=== PATIENT | male | born 1970 | race Caucasian/White ===

== ENCOUNTER 2024-11-02 14:51 | Outpatient (CLI) | payer OTHER | END 2024-11-02 14:52 | disposition home or self-care (01) | LOC: BICCT 14:51 | PROVIDERS: ATTEND Student in an Organized Health Care Education/Training Program | DX: M19.011 Primary osteoarthritis, right shoulder (principal); M75.121 Complete rotator cuff tear or rupture of right shoulder, not specified as traumatic; M62.511 Muscle wasting and atrophy, not elsewhere classified, right shoulder; M25.811 Other specified joint disorders, right shoulder; R93.7 Abnormal findings on diagnostic imaging of other parts of musculoskeletal system; M21.821 Other specified acquired deformities of right upper arm ==

== ENCOUNTER 2025-06-19 03:03 | Emergency (ER) | payer OTHER ==
[2025-06-19] MEDS ORDERED: PROPOFOL 20 ML ONE (03:28)
[2025-06-19] MEDS ORDERED: Acetaminophen 500 MG TAB ONE (04:01)
== END 2025-06-19 05:00 ==
LOC: EEVIPCON 03:03 → ERS 03:03
DX: T84.028A Dislocation of other internal joint prosthesis, initial encounter (principal); I11.0 Hypertensive heart disease with heart failure; I50.9 Heart failure, unspecified; E11.9 Type 2 diabetes mellitus without complications; Z02.89 Encounter for other administrative examinations; Z87.891 Personal history of nicotine dependence
CPT/HCPCS: 23650; 99152; 99153; J2704